=== PATIENT | female | born 1940 | race Caucasian/White ===

== ENCOUNTER → 2017-02-02 | Outpatient (CLI) | payer MEDICARE, BC ==
[~2017-02-02] MED LIST: ALEN70TA30 PO; AMIO100T4 PO; AMLO-145 PO; ATEN50TA PO; ESTR1TAB80 PO; LIPA1CAP4 PO; MOISTURE; MURO; OMEP40CA6 PO; PROP150T PO; VALS40TA2 PO; [UNRECOGNIZED DRUG - CODE] BOTH EYES; docusate sodium
--- NOTE | 2017-02-02 11:38 | RADRPT ---
PROCEDURE: XR Pelvis and Hips. CLINICAL INDICATION: Pelvic pain. Bilateral hip pain. TECHNIQUE: Five views. Frontal pelvis. Frontal and lateral right hip. Frontal and lateral left hip. COMPARISON: 01/07/2016. FINDINGS: There are bilateral total hip arthroplasties. These appear satisfactory with no fracture, dislocati on, or loosening. Surgical clips are present in the right inguinal region. Vascular calcifications are present consistent with atherosclerosis. There is no lytic or blastic lesion. There is diffuse osteopenia. IMPRESSION: 1. Satisfactory postoperative appearance of both hips. RPTAT: QQ .Daniel Patel MD, MD Date Time Electronically viewed and signed by .Daniel Patel MD, MD on 02/02/2017 11:38 .R/
== END | disposition home or self-care (01) ==
LOC: HKI 08:45
PROVIDERS: ATTEND Orthopaedic Surgery
DX: Z09 Encounter for follow-up examination after completed treatment for conditions other than malignant neoplasm (principal); Z96.643 Presence of artificial hip joint, bilateral
CPT/HCPCS: 73523; G0463